=== PATIENT | female | born 1990 | race Hispanic/Latino ===

== ENCOUNTER 2017-03-19 11:56 | Emergency (ER) | payer MEDICAID, SELFPAY ==
[2017-03-19 13:05] LABS: Bilirubin Negative (Negative); Blood, Urine Large (Negative); Glucose, Urine (Dipstick) 500 mg/dL (Negative); Ketone, Urine Negative (Negative); Nitrite Positive (Negative); Protein, Urine (Dipstick) Negative (Neg-Trace); Urobilinogen 0.2 mg/dL (0.2-1.0)
[2017-03-19 13:17] LABS: Bacteria/HPF 4+ HPF (None Seen); Hyaline Casts/LPF 0-3 HYALINE CAST LPF (0-3 Hyaline); RBC/HPF GREATER THAN 50-TNTC HPF (0-3); Squamous Epithelial None Seen HPF (0-3)
[2017-03-19 13:37] LABS: #Eosinphils 0.1 thou/uL (0.0-0.7); #Lymphocytes 2.6 thou/uL (1.20-3.40); #Monocytes 0.4 thou/uL (0.11-0.59); #Neutrophils 4.9 thou/uL (1.40-6.50); %Basophils 0.2 % (0.0-1.0); %Eosinophils 1.6 % (0.0-10.0); %Lymphocytes 32.5 % (21.0-51.0); %Monocytes 4.8 % (0.0-10.0); Hematocrit 38.2 % (36.0-47.0); Mean Platelet Volume 8.8 fL (7.4-10.4); White Blood Cell (WBC) Count 8.1 thou/uL (4.8-10.8)
[2017-03-19] MEDS ORDERED: Nitrofurantoin Monohyd/M-Cryst 100 MG CAP PO SCH (13:45)
[2017-03-19 13:49] LABS: ALT (SGPT) 50 U/L (8-55); AST (SGOT) 56 U/L (5-34); Alkaline Phosphatase 153 U/L (40-150); Anion Gap 9 mmol/L (10-20); BUN (Urea Nitrogen) 9 mg/dL (7.0-18.7); Bilirubin, Total 0.3 mg/dL (0.2-1.2); Calc. Creatinine Clearance 0 mL/min (70-130); Calcium 9.7 mg/dL (7.8-10.44); Carbon Dioxide 28 mmol/L (22-29); Chloride 102 mmol/L (98-107); Estimated GFR-MDRD Greater than 90; Globulin 3.4 g/dL (2.4-3.5); Protein, Total 7.7 g/dL (6.0-8.3)
--- NOTE | 2017-03-19 15:35 | ULT ---
PELVIC ULTRASOUND: 03/19/17 COMPARISON: None. HISTORY: 27-year-old female with vaginal bleeding, positive test. TECHNIQUE: Multiplanar velez scale sonographic imaging of the pelvis obtained with transabdominal and endovaginal imaging. Right ovary is assessed with color flow/spectral analysis. FINDINGS: The left ovary could not be visualized despite transabdominal and endovaginal imaging. There is free fluid within the pelvic cul-de-sac. The uterus measures 9.5 x 3.3 x 4.8 cm with an endometrial stripe of 6-7 mm, within normal limits. No intrauterine gestational sac is noted. Evaluation of the left adnexa is limited on the basis of genevieve l gas. IMPRESSION: No intrauterine gestation seen. The differential diagnosis for these sonographic findings in the setting of positive test i ncludes spontaneous , sonographically occult ectopic , and normal early . C orrelation with quantitative beta HCG at this time and in 48 hours is essential. Followup pelvic ultr asound in 48 hours may be beneficial as well. POS: [facility]
== END 2017-03-19 15:27 | disposition home or self-care (01) ==
LOC: ERS 11:56
DX: O20.0 Threatened abortion (principal); O23.41 Unspecified infection of urinary tract in pregnancy, first trimester; O23.591 Infection of other part of genital tract in pregnancy, first trimester; O10.911 Unspecified pre-existing hypertension complicating pregnancy, first trimester
CPT/HCPCS: 36415; 76856; 80053; 81003; 81015; 84702; 84703; 85025; 86900; 86901; 87480; 87491; 87510; 87591; 87660

== ENCOUNTER 2020-01-14 10:09 | Day surgery (SDC) | payer MEDICAID ==
[2020-01-14 10:47] VITALS: BMI 37.2
[2020-01-14 10:49] VITALS: BP 126/58; TEMP 98.3
[2020-01-14] MEDS ORDERED: hydrALAZINE 20 MG/ML VIAL SLOW IVP PRN (11:30)
--- NOTE | 2020-01-14 11:30 | PDOC.FPROB ---
FMR OB H&P: HPI - History of Present Illness Chief Complaint: decreased movement History of Present Illness: 29 yo at 35.5 wks with a history of insulin dependent pre-gestational diabetes presenting for failed BPP 08/04 x2 at clinic today. Patient has been feeling baby move, she denies any bleeding, LOF, or vaginal discharge. Her diabetes has been generally well-controlled, fasting BGs <100 and postprandial <120. FMR OB H&P: Current - Care : 5 Para: 1031 Gestational age: 35.5 Due date: 02/13/2020 Course/Complications: Class B insulin dependent pre-gestational diabetes, toxoplasmosis of left eye - OB Labs Blood type: O RH: positive Antibody Screen: unknown HIV: negative RPR: negative HepBsAg: negative Rubella: immune Quad screen: negative Urine drug screen: not done Gonorrhea: negative Chlamydia: negative Pap Smear: NILM (06/2019), prior ASCUS with positive HPV A1c: 5.6 (12/23/2019) GBS: unknown Additional labs: 24 hour urine: negative FMR OB H&P: History - Past Medical History PMH: Class B insulin dependent diabetes, toxoplasmosis of L eye - OB History OB History: SABsx3, previous due to diabetes and size of baby - PSYCHIATRIC THERAPIST History PSYCHIATRIC THERAPIST History: NILM (06/2019), prior ASCUS with positive HPV - Surgical History Sx History: None - Social History Social History: Denies tobacco, alcohol, marijuana, or drug use - Family History Family History: Father - diabetes FMR OB H&P: Medications - Current Home Medications: Medication Instructions Recorded Confirmed Type Docusate [Colace] 100 mg PO BID #0 cap 10/24/15 Rx Ferrous Sulfate [Feosol] 325 mg PO BID-WM #0 tab 10/24/15 Rx HYDROcodone Bit/APAP 5/325 [[place]] 1 tab PO Q4H PRN #0 tab 10/24/15 Rx Ibuprofen [Motrin] 800 mg PO Q8HR #0 tab 10/24/15 Rx Vitamin 1 tab PO DAILY #0 tab 10/24/15 01/14/20 Rx Aspirin [Ecotrin] 81 mg PO DAILY 01/14/20 01/14/20 History Allergies/Adverse Reactions: Allergies Allergy/AdvReac Type Severity Reaction Status Date / Time No Known Allergies Allergy Verified 01/14/20 10:41 FMR OB H&P: ROS - Review of Systems Eyes: denies: vision changes Cardiovascular: denies: chest pain Respiratory: denies: shortness of breath Gastrointestinal: denies: abdominal pain Genitourinary (Female): denies: dysuria, vaginal discharge, vaginal bleeding, contractions Neurologic: denies: headache FMR OB H&P: Vital Signs - Maternal Vital signs: Vital Signs - First Documented Temp Pulse Resp BP 98.3 F 80 18 126/58 L 01/14/20 10:38 01/14/20 10:38 01/14/20 10:38 01/14/20 10:38 - Heart Tones Baseline: 130 Variability: moderate Acceleration: present Deceleration: absent Category: category 1 (Reactive NST) [place] contractions every: none FMR OB H&P: Physical Exam - Physical Exam General: NAD, awake, alert and oriented HEENT: normocephalic and atraumatic, EOMI, grossly normal vision, grossly normal hearing, other (red ring around iris of left eye) Neck: FROM Heart: RRR, no murmurs/rubs/gallops, pulses present, no edema General: CTAB, no respiratory distress, no wheezing, no retractions Abdomen: soft, gravid Musculoskeletal: FROM in all four extremities Neurological: sensation to pain,touch and proprioception grossly normal Psychiatric: intact recent and remote memory, good judgement and insight, normal mood and affect FMR OB H&P: A/P Discussion: Date/Time: 01/14/20 1130 29 yo at 35.5 wks with a history of insulin dependent pre-gestational diabetes presenting for failed BPP 08/04 BPP -Unknown what patient lost points for -NST reactive -Feeling baby move, denies bleeding or LOF -BPP 10/04 - points deducted for breathing Pre-gestational insulin dependent diabetes -Has been well controlled during -Fasting BGs <100, postprandial <120 IUP -Missing PNC visit today so will perform GBS swab while here -COVID test 01/29/2020 -rLTCS 02/02/2020 Ocular toxoplasmosis of L eye -localized -received an injection earlier in -currently uses eye drops -denies any problems lately Hx of preE -BPs 120s/80s today -24 hour urine negative in this (105mg protein) -takes daily aspirin SABx3 -MD aware Dispo: Discharged home today. Repeat scheduled on 02/01. Labor precautions given. Continue insulin, aspirin, and vitamin. This H&P was discussed with Dr. Chow and Dr. Kim who agree with the above documentation and plan.
--- NOTE | 2020-01-14 12:55 | ULT ---
US Biophysical Profile History: Decreased movements. Comparison: None Findings: The biophysical profile score is 6/8 scoring 2 for tone, 0 for breathing, 2 for movements and 2 for amniotic fluid. The position is transverse and the placenta is posterior. Heart rate documented at 123 bpm. Amniotic fluid index: 14.3 cm. Impression: Biophysical profile score of 6/8 scoring 0 for breathing.
== END 2020-01-14 13:11 | disposition home or self-care (01) ==
LOC: L&D/OP 10:09
PROVIDERS: ATTEND Obstetrics & Gynecology
DX: O36.8130 Decreased fetal movements, third trimester, not applicable or unspecified (principal); O24.313 Unspecified pre-existing diabetes mellitus in pregnancy, third trimester; E11.9 Type 2 diabetes mellitus without complications; O98.613 Protozoal diseases complicating pregnancy, third trimester; B58.00 Toxoplasma oculopathy, unspecified; O34.219 Maternal care for unspecified type scar from previous cesarean delivery; O32.2XX0 Maternal care for transverse and oblique lie, not applicable or unspecified; Z3A.35 35 weeks gestation of pregnancy; Z79.4 Long term (current) use of insulin; Z79.82 Long term (current) use of aspirin
CPT/HCPCS: 36416; 59025; 76819; 87077; 87081; 99283

== ENCOUNTER 2020-01-28 10:41 | Day surgery (SDC) | payer OTHER, SELFPAY ==
[2020-01-28 11:18] VITALS: BP 128/70; TEMP 98.3
[2020-01-28] MEDS ORDERED: hydrALAZINE 20 MG/ML VIAL SLOW IVP PRN (11:37)
--- NOTE | 2020-01-28 11:42 | PDOC.FPROB ---
FMR OB H&P: HPI - History of Present Illness Chief Complaint: sent from clinic for elevated BPs Indentification: 29yo @ 37.5wks by 8.3wk US History of Present Illness: Patient was at [facility] clinic today getting testing and was found to have BPs in the 140s. Highest was 143/80. Patient's BPP was a 6/8. She denies any NVD, chest pain. She does report some swelling in her hands and feet that started 3 days ago. She endorses mild MIDDLETON that improved with ASA this morning and vision changes this morning that have since resolved. She reports that she was seeing "lines". She has pregestational DM and is on insulin. She did not take her insulin this morning and ate an egg quesadilla. Primary Care Physician: [facility] Carina Chow FMR OB H&P: Current - Care : 4 Para: 1021 Gestational age: 37.5 Due date: 02/13/20 Dating Criteria: 1T US Course/Complications: pregestational DM, class B, hx of preE - OB Labs Blood type: O RH: positive Antibody Screen: negative HIV: negative RPR: negative HepBsAg: negative Rubella: immune Quad screen: negative Gonorrhea: negative Chlamydia: negative Pap Smear: NILM 06/2019 A1c: 9.0 -> 5.6 GBS: positive H&H: 12.6/37.5 Additional labs: Genetics screening normal, TSH 2.390, received Td 11/30/19 - First Trimester Ultrasound First trimester: 8.3 wk US - Anatomy Survey Anatomy survey: normal growth, no abnormalities noted FMR OB H&P: History - Past Medical History PMH: Pregestational diabetes class B, ocular toxoplasmosis, anemia of , GERD, constipation - OB History OB History: 1 CS @ 38 wks 2/2 elevated sugars, macrosomia per pt 2 SAB at 6 and 12 wks - 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 Colpo referal sent. Repap snowed NILM. Colpo 6weeks PP. FMR OB H&P: Medications - Current Home Medications: Medication Instructions Recorded Confirmed Type Ferrous Sulfate [Feosol] 325 mg PO BID-WM #0 tab 10/24/15 01/28/20 Rx Vitamin 1 tab PO DAILY #0 tab 10/24/15 01/28/20 Rx Aspirin [Ecotrin] 81 mg PO DAILY 01/14/20 01/28/20 History Allergies/Adverse Reactions: Allergies Allergy/AdvReac Type Severity Reaction Status Date / Time No Known Allergies Allergy Verified 01/28/20 11:09 FMR OB H&P: ROS - Review of Systems General: denies: fever/chills, weight/appetite/sleep changes, night sweats, fatigue Eyes: reports: vision changes ENT: denies: nasal congestion, rhinorrhea Cardiovascular: reports: edema. denies: chest pain, palpitation Respiratory: reports: shortness of breath Gastrointestinal: denies: abdominal pain, vomiting, diarrhea Genitourinary (Female): denies: incontinence, dysuria FMR OB H&P: Vital Signs - Maternal Vital signs: Vital Signs - First Documented Temp Pulse Resp BP 98.3 F 75 18 128/70 01/28/20 11:09 01/28/20 11:09 01/28/20 11:09 01/28/20 11:09 - Heart Tones Baseline: 120 Variability: moderate Acceleration: present Deceleration: absent [place] contractions every: none FMR OB H&P: Physical Exam - Physical Exam General: NAD, awake, alert and oriented HEENT: normocephalic and atraumatic Deviation from normal: Punctate hemorrhage in L eye sclera near iris Neck: supple, FROM Heart: RRR, normal S1/S2, no murmurs/rubs/gallops General: CTAB, no respiratory distress Abdomen: gravid, non-tender - Pelvic Exam Estimated Weight: 5 lbs FMR OB H&P: A/P Discussion: Date/Time: 01/28/20 1139 29yo @ 37.5wks by 8.3wk US presenting for HTN and 6/10 BPP sIUP - Continuous monitoring, no ctx at this time - repeat BPP in 4 hours - management pending BPP HTN - Hx of PreE, endorses swelling, MIDDLETON, vision changes - CBC, CMP, Uric Acid, Urine protein/creatinine - monitor VS T2DM - Patient did not take insulin this AM - accucheck - NPO at this time in case of C/S Vinny's thyroiditis - MD aware Obesity - MD aware Ocular toxoplasmosis - MD aware - IgG and IgM negative, follows w/ opthalmology This H&P was discussed with Dr. Clayton who agree with the above documentation and plan. Addendum - Attending - Attending Attestation Date/Time: 01/28/20 3326 I personally evaluated the patient and discussed the management with Dr. Metzger I agree with the History, Examination, Assessment and Plan documented above with any addition or exceptions noted below - 29 yo @37.4 weeks with pregestational DM sent from clinic due to elevated BP and BPP 10/04. Denies any ctx, LOF, VB. Mild MIDDLETON this morning resolved with ASA. Home BP log - no reading higher than 140/70. Afebrile VSS. FHTs- Cat 1. [place]- no ctx. Serial BPs <140/80. Labs AST/ALT, plt normal. Urine prot<10. BPP 88; NST reactive. A/P: IUP@ 37.4 weeks - no evidence of pre-eclampsia or PHI. Repeat BPP 12/04. D/C home with labor precautions. Repeat C/S scheduled for Saturday.
[2020-01-28 12:28] LABS: #Eosinphils 0.1 thou/uL (0.0-0.7); #Lymphocytes 2.1 thou/uL (1.20-3.40); #Monocytes 0.5 thou/uL (0.11-0.59); #Neutrophils 7.6 thou/uL (1.40-6.50); %Basophils 0.4 % (0.0-1.0); %Eosinophils 0.5 % (0.0-10.0); %Lymphocytes 20.2 % (21.0-51.0); %Monocytes 4.6 % (0.0-10.0); %Neutrophils 74.2 % (42.0-75.0); Hemoglobin 12.5 g/dL (12.0-16.0); Mean Corpuscular Volume 88.1 fL (78.0-98.0); Mean Platelet Volume 9.6 fL (7.4-10.4); Platelet Count 155 thou/uL (130-400); RBC Distribution Width 12.9 % (11.5-14.5); Red Blood Cell (RBC) Count 4.18 mill/uL (4.20-5.40); White Blood Cell (WBC) Count 10.2 thou/uL (4.8-10.8)
[2020-01-28 12:36] LABS: Creatinine, Urine 67.97 mg/dL (47-110); Protein, Urine Random Quant Less than 10 mg/dL (1-14)
[2020-01-28 12:50] LABS: ALT (SGPT) 11 U/L (8-55); AST (SGOT) 9 U/L (5-34); Albumin 3.4 g/dL (3.5-5.0); Alkaline Phosphatase 164 U/L (40-110); Anion Gap 14 mmol/L (10-20); BUN (Urea Nitrogen) 8 mg/dL (7.0-18.7); Bilirubin, Total 0.3 mg/dL (0.2-1.2); Calc. Creatinine Clearance 0 mL/min (70-130); Calcium 8.5 mg/dL (7.8-10.44); Carbon Dioxide 19 mmol/L (22-29); Chloride 107 mmol/L (98-107); Estimated GFR-MDRD Greater than 90; Globulin 3.3 g/dL (2.4-3.5); Glucose 84 mg/dL (70-105); Potassium 3.8 mmol/L (3.5-5.1); Protein, Total 6.7 g/dL (6.0-8.3); Sodium 136 mmol/L (136-145); Uric Acid 3.7 mg/dL (2.6-6.0)
--- NOTE | 2020-01-28 17:13 | ULT ---
ULTRASOUND BIOPHYSICAL PROFILE: DATE: 01/28/2020 HISTORY: 29-year-old female in third trimester of . FINDINGS: breathin tone: 2 movement: 2 Amniotic fluid volume: 2 Although largest pocket of amniotic fluid is 3.5 cm, the LESTER is only 5 cm. lie: Vertex. Placenta: Fundal. No placenta previa. IMPRESSION: 1. Normal biophysical profile score of 8/8, excluding the non-stress test. 2. Borderline oligohydramnios. jn [] POS: [facility]
[2020-01-29] MEDS ORDERED: FLU VACC QS2020-21(6MOS UP)/PF 60 MCG/0.5 ML SYRINGE IM ONE (09:00)
== END 2020-01-28 15:15 | disposition home or self-care (01) ==
LOC: L&D/OP 10:41
PROVIDERS: ATTEND Family Medicine
DX: O16.3 Unspecified maternal hypertension, third trimester (principal); O24.414 Gestational diabetes mellitus in pregnancy, insulin controlled; O99.283 Endocrine, nutritional and metabolic diseases complicating pregnancy, third trimester; E06.3 Autoimmune thyroiditis; O99.213 Obesity complicating pregnancy, third trimester; E66.9 Obesity, unspecified; O98.613 Protozoal diseases complicating pregnancy, third trimester; B58.00 Toxoplasma oculopathy, unspecified; O99.013 Anemia complicating pregnancy, third trimester; D64.9 Anemia, unspecified; O09.293 Supervision of pregnancy with other poor reproductive or obstetric history, third trimester; O34.219 Maternal care for unspecified type scar from previous cesarean delivery; Z3A.37 37 weeks gestation of pregnancy; Z79.82 Long term (current) use of aspirin
CPT/HCPCS: 36415; 36416; 76819; 80053; 82570; 84156; 84550; 85025

== ENCOUNTER 2020-01-29 08:38 | Outpatient (CLI) | payer OTHER ==
[2020-01-29 19:47] LABS: SARS-CoV-2 MS2 Positive; SARS-CoV-2 N Gene Negative; SARS-CoV-2 S Gene Negative; SARS-CoV-2 by NAA Not Detected (NotDetected); SARS-CoV-2 orf1ab Negative
== END 2020-01-29 08:39 | disposition home or self-care (01) ==
LOC: LABBT 08:38
PROVIDERS: ATTEND Family Medicine
DX: Z20.828 Contact with and (suspected) exposure to other viral communicable diseases (principal)
CPT/HCPCS: 87635; U0003

== ENCOUNTER 2020-02-02 06:38 | Inpatient (IN) | payer OTHER, SELFPAY ==
[2020-02-02] MEDS ORDERED: hydrALAZINE 20 MG/ML VIAL SLOW IVP PRN ×2 (06:42)
[2020-02-02] MEDS ORDERED: Ondansetron PF 4 MG/2 ML Vial IVP PRN ×3 (06:42→07:38)
[2020-02-02] MEDS ORDERED: Acetaminophen 500 MG TAB PO PRN (06:42)
[2020-02-02] MEDS ORDERED: Promethazine HCl 25 MG/ML VIAL IM PRN ×3 (06:42→07:38)
[2020-02-02] MEDS ORDERED: CEFAZOLIN 2 GM in Premix Bag 1 BAG IVPB SCH ×2 (06:45→07:15)
[2020-02-02] MEDS ORDERED: Lactated Ringer's 1,000 ML IV SCH (06:45)
[2020-02-02] MEDS ORDERED: Bicitra 30 ML UDCUP PO SCH ×2 (06:45→07:15)
--- NOTE | 2020-02-02 06:51 | PDOC.FPROB ---
FMR OB H&P: HPI - History of Present Illness Chief Complaint: scheduled RLTCS Indentification: 29 yo at 38.3 by 1T sono History of Present Illness: Patient presents for repeat scheduled . Denies VB, VD, LOF, and contractions. Some cramping abdominal pain, intermittently, does not know if they are contractions. Primary Care Physician: LAQUITA Chow - Care : 4 Para: 1021 Gestational age: 38.3 Due date: 02/13/20 Dating Criteria: 1T US Course/Complications: pregestational DM, class B ocular toxoplasmosis anemia of - OB Labs Blood type: O RH: positive Antibody Screen: negative HIV: negative RPR: negative HepBsAg: negative Rubella: immune Quad screen: negative Gonorrhea: negative Chlamydia: negative Pap Smear: NILM 06/2019 A1c: 9.0 -> 5.6 GBS: positive H&H: 12.6/37.5 Additional labs: Genetics screening normal, TSH 2.390, received Td 11/30/19 - First Trimester Ultrasound First trimester: 8.3 wk US - Anatomy Survey Anatomy survey: normal growth, no abnormalities noted FMR OB H&P: History - Past Medical History PMH: Diabetes, GERD - OB History OB History: 1 CS @ 38 wks 2/2 elevated sugars, macrosomia per pt, Pre-E 2 SAB at 6 and 12 wks - 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 Colpo referal sent. Repap snowed NILM. Colpo 6weeks PP. FMR OB H&P: Medications - Current Home Medications: Medication Instructions Recorded Confirmed Type Ferrous Sulfate [Feosol] 325 mg PO BID-WM #0 tab 10/24/15 02/02/20 Rx Vitamin 1 tab PO DAILY #0 tab 10/24/15 02/02/20 Rx Aspirin [Ecotrin] 81 mg PO DAILY 01/14/20 02/02/20 History Insulin NPH Human Isophane 46 unit SQ BID 02/02/20 02/02/20 History [NovoLIN N] Insulin Regular, Human [Novolin R] 30 units IJ BID 02/02/20 02/02/20 History prednisoLONE [Prednisolone] 1 drop EA EYE DAILY 02/02/20 02/02/20 History Allergies/Adverse Reactions: Allergies Allergy/AdvReac Type Severity Reaction Status Date / Time No Known Allergies Allergy Verified 01/28/20 11:09 FMR OB H&P: ROS - Review of Systems General: denies: fever/chills, fatigue Eyes: denies: vision changes ENT: denies: nasal congestion, sore throat Cardiovascular: denies: chest pain, edema Respiratory: denies: cough, shortness of breath Gastrointestinal: reports: cramping. denies: nausea, vomiting Genitourinary (Female): denies: dysuria, vaginal discharge, vaginal bleeding, contractions Musculoskeletal: denies: pain Neurologic: denies: headache Integumentary: denies: itching, rash Hematologic/Lymphatic: denies: prolonged or excessive bleeding Psychological: denies: depression, anxiety FMR OB H&P: Vital Signs - Maternal Vital signs: BP 138/78 HR 78 R 12 - Heart Tones Baseline: 130 (reactive) Variability: moderate Acceleration: present Deceleration: absent [place] contractions every: none FMR OB H&P: Physical Exam - Physical Exam General: NAD, awake, alert and oriented HEENT: normocephalic and atraumatic, MMM, no scleral icterus, grossly normal vision, grossly normal hearing Deviation from normal: small conjunctival hemorrhage from injection Neck: supple, FROM, trachea midline Heart: RRR, normal S1/S2, no murmurs/rubs/gallops General: CTAB, no respiratory distress Abdomen: soft, gravid, non-tender Musculoskeletal: normal gait and station, pulses present, FROM in all four extremities Neurological: no focal deficit Skin: no rash Lymphatic: no unusual bruising or bleeding Psychiatric: intact recent and remote memory, normal mood and affect - Pelvic Exam Membranes: intact Presentation: cephalic by sono Estimated Weight: 9 lbs FMR OB H&P: A/P Disposition: admit to obstetrics unit for RLTCS this AM. Discussion: Date/Time: 02/02/20 0649 29 yo at 38.3 presents for due to: Pregestational diabetes, class B, on insulin - preop Covid NEG - bedside sono cephalic presentation, posterior placenta Hx of prior , pre-e Hx of ocular toxoplasmosis This H&P was discussed with Dr. Roa, who agrees with the above documentation and plan. Signature: Jamarcus Chow, PGY2 Addendum - Attending - Attending Attestation Date/Time: 02/02/20 4738 I personally evaluated the patient and discussed the management with Dr. Chow. I agree with the History, Examination, Assessment and Plan documented above with any addition or exceptions noted below. Discussed risks of with patient and she consents and desires to proceed.
[2020-02-02] MEDS ORDERED: Ondansetron PF 4 MG/2 ML Vial ONE ×2 (06:57→10:54)
[2020-02-02] MEDS ORDERED: Ketorolac Tromethamine 30 MG/ML VIAL ONE (06:57)
[2020-02-02] MEDS ORDERED: PHENYLEPHRINE-NS 100 MCG/ML 10 ML SYRINGE ONE (06:57)
[2020-02-02] MEDS ORDERED: Oxytocin 10 UNITS/ML VIAL ONE ×2 (06:57→09:23)
[2020-02-02] MEDS ORDERED: Lidocaine 1% PF 5 ML VIAL ONE (07:16)
[2020-02-02 07:33] VITALS: BMI 38.2
[2020-02-02 07:36] LABS: Hemoglobin 12.4 g/dL (12.0-16.0); Mean Corpuscular HGB CONC 34.5 g/dL (32.0-36.0); Mean Corpuscular Hemoglobin 29.9 pg (27.0-31.0); Mean Corpuscular Volume 86.5 fL (78.0-98.0); Mean Platelet Volume 10.2 fL (7.4-10.4); Platelet Count 162 thou/uL (130-400); Red Blood Cell (RBC) Count 4.16 mill/uL (4.20-5.40); White Blood Cell (WBC) Count 9.1 thou/uL (4.8-10.8)
[2020-02-02] MEDS ORDERED: Ondansetron HCl/PF 4 MG/2 ML Vial IVP PRN (07:38)
[2020-02-02] MEDS ORDERED: Ketorolac Tromethamine 30 MG/ML VIAL IVP PRN (07:38)
[2020-02-02] MEDS ORDERED: diphenhydrAMINE 50 MG/ML VIAL IVP PRN (07:38)
[2020-02-02] MEDS ORDERED: Meperidine HCl/PF 25 MG/ML VIAL SLOW IVP PRN (07:38)
[2020-02-02] MEDS ORDERED: HYDROmorphone 2 MG/ML VIAL SLOW IVP PRN (07:38)
[2020-02-02] MEDS ORDERED: Naloxone HCl 0.4 mg/ml Vial IV PRN (07:38)
[2020-02-02] MEDS ORDERED: Naloxone HCl 0.4 mg/ml Vial IVP PRN ×2 (07:38)
[2020-02-02] MEDS ORDERED: L&D-Morphine 4 MG/ML VIAL SLOW IVP PRN (07:38)
[2020-02-02] MEDS ORDERED: Promethazine HCl 25 MG SUPP PR PRN (07:38)
[2020-02-02] MEDS ORDERED: Dextrose 50% Abboject 50 ML SYRINGE ONE (07:44)
[2020-02-02] MEDS ORDERED: Ketorolac Tromethamine 30 MG/ML VIAL IVP SCH (07:45)
[2020-02-02] MEDS ORDERED: Communication Order-Pharmacy FS SCH (07:45)
[2020-02-02] MEDS ORDERED: FLU VACC QS2020-21(6MOS UP)/PF 60 MCG/0.5 ML SYRINGE IM ONE (08:15)
[2020-02-02] MEDS ORDERED: ePHEDrine 50 MG/ML VIAL ONE ×2 (08:17)
[2020-02-02 08:18] LABS: Syphilis Antibody Nonreactive (Nonreactive); Syphilis Antibody Index 0.03 S/CO (<1.00 Non-Reactive)
[2020-02-02 08:19] LABS: HBSAg Index 0.12 S/CO (0-0.99); Hep B Surf Ag Non-Reactive S/CO (NonReactive)
[2020-02-02] MEDS ORDERED: Morphine 4 MG/ML VIAL ONE (09:20)
[2020-02-02] MEDS ORDERED: NS / Oxytocin 40 units/1000ml 0 ML ONE (09:27)
[2020-02-02] MEDS ORDERED: Lanolin Ointment 7 GM TUBE TOP PRN (11:20)
[2020-02-02] MEDS ORDERED: Misoprostol 200 MCG TAB PR PRN (11:20)
[2020-02-02] MEDS ORDERED: Methylergonovine 0.2 MG TAB PO PRN (11:20)
[2020-02-02] MEDS ORDERED: Bisacodyl 10 MG SUPP PR PRN (11:20)
--- NOTE | 2020-02-02 13:04 | PDOC.BPN ---
- Brief Progress Note Seen 4hrs post op S: pt feeling generally well though she is having some nausea and vomiting clears. Otherwise reports pain is controlled and she has not had bleeding. No CP or SOB, no MIDDLETON. O: vitals reviewed and wnl Abd is appropriately tender with fundus a few cm below umbilicus, no dionte bleeding through bandage or vagina heart RRR lungs CTAB BG reviewed and consistently in 80s and 90s every hour A/P: Pt has had dose of zofran 2 hours ago but still nauseous. Instructed nurse she may administer the ordered promethazine. space blood sugar checks to q4hrs. otherwise routine PP care.
[2020-02-02] MEDS: Lactated Ringer's 1,000 ML IV SCH ×4 (16:26→19:21)
--- NOTE | 2020-02-02 18:56 | OP ---
DATE OF PROCEDURE: 02/02/2020 RESIDENT SURGEON: aPrul Chow MD, PGY2 READING TEACHER SURGEON: Jack Troy MD, PGY2 ATTENDING: Deyvi Roa MD PROCEDURE PERFORMED: Repeat low-transverse section with vacuum assisted extraction PREOPERATIVE DIAGNOSES: 1. Term intrauterine . 2. Pregestational diabetes, class B. 3. History of preeclampsia in prior . 4. 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 POSTOPERATIVE DIAGNOSES: 1. Term intrauterine , delivered. 2. Pregestational diabetes, class B. 3. History of preeclampsia in prior . 4. 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 COMPLICATIONS: None. QUANTITATIVE BLOOD LOSS: 550 mL. SPECIMENS: Cord blood obtained for blood type. FINDINGS: Placenta intact with 3-vessel cord noted, discarded. Viable male with Apgars of 8 and 9 at 1 and 5 minutes of life respectively. DRAINS: Obrien to gravity draining clear urine. INDICATIONS FOR PROCEDURE: This 29-year-old G4, P1-0-2-1, at 38.3 weeks of gestation, presents to labor and delivery for a repeat low-transverse scheduled , medically indicated due to pregestational diabetes. PROCEDURE IN DETAIL: After risks, benefits, and alternatives were explained, the patient gave her informed consent. Preoperative antibiotics included cefazolin 2 g IV. The patient was taken to the operating room, where spinal anesthesia was initiated. The patient was placed in a supine position with left tilt. She was prepped and draped in the usual sterile fashion. After a time-out was performed, a Pfannenstiel was made over the previous scar with a scalpel and carried down to the level of the fascia, which was sharply nicked. The fascia was extended bilaterally with Cedillo scissors. The superior and inferior edges of the fascia were elevated with Devin clamps and were bluntly and sharply dissected free. The rectus muscles were divided digitally and retracted manually. The peritoneum was entered superiorly bluntly and retracted manually. The bladder was noted to be near to the inferior edge of the fascia and so the field was opened laterally to create more room. There were no noted intraabdominal adhesions. The Satinder O retractor was placed inside the abdomen. A low-transverse uterine incision was made with a scalpel. The uterus was entered bluntly. An Allis clamp was used to break the amniotic sac. Clear fluid was seen. Two attempts were made to bring the infant's head to the uterine incision. A vacuum was then applied to the 's head, and the 's head was easily delivered with gentle traction. Vacuum was removed. The anterior shoulder and remainder of the infant's body were then delivered. The infant was dried; cord was clamped and cut. The infant was taken to the warmer. Cord blood was obtained. The hysterotomy was clamped with ring forceps. The placenta was delivered easily with cord traction and fundal massage. The endometrium was curetted 3 times with a dry lap, and no remnants of amniotic membranes were observed. The hysterotomy was closed in a running locking fashion with 1 Monocryl. After this, hemostasis was achieved. A small 2 cm diameter hematoma was noted at the left corner of the hysterotomy. This was checked multiple times over a 10-minute period and noted to be hemostatic. The uterus was externalized and there was no bleeding posteriorly. The edges of the fascia and rectus muscle bleeders were cauterized. Uterus was internalized. Due to bladder location, the bladder was filled with approximately 200 mL of sterile formula. No extravasation of formula was noted. The hysterotomy was again noted to be hemostatic x5. The fascia was then closed in a running nonlocking fashion with 1 PDS with the exception of locking the first stitch at the corners. Subcutaneous space was closed with 2-0 plain gut in an interrupted fashion. The skin was approximated using mechelle. A pressure dressing was placed. All counts were correct. The patient tolerated the procedure well and went to for routine care. Attending addendum: I was present and scrubbed for the entire procedure. Job ID: [id number] [facility]
[2020-02-02] MEDS: Ferrous Sulfate 325 MG TAB PO SCH (19:21)
[2020-02-03] MEDS: Lactated Ringer's 1,000 ML IV SCH ×2 (00:53→16:03)
[2020-02-03 06:00] LABS: Hemoglobin 9.5 g/dL (12.0-16.0); Mean Corpuscular HGB CONC 34.9 g/dL (32.0-36.0); Mean Corpuscular Hemoglobin 30.5 pg (27.0-31.0); Mean Corpuscular Volume 87.4 fL (78.0-98.0); Mean Platelet Volume 9.4 fL (7.4-10.4); Platelet Count 114 thou/uL (130-400); RBC Distribution Width 12.9 % (11.5-14.5); Red Blood Cell (RBC) Count 3.11 mill/uL (4.20-5.40); White Blood Cell (WBC) Count 8.7 thou/uL (4.8-10.8)
--- NOTE | 2020-02-03 06:12 | PDOC.PP ---
Post Progress Note Post Day #: 1 Subjective: Feeling well. Pain has been tolerable w/ toradol and ibuprofen. Nausea and vomiting yesterday, this morning feels better. Has not had solid food. Obrien removed this AM. PO intake tolerated: no Flatus: yes Ambulation: no Vital Signs (12 hours) Temp Pulse Resp BP Pulse Ox 02/03/20 04:57 98.4 F 95 16 99/51 L 100 02/03/20 00:58 97.7 F 97 16 101/57 L 99 02/02/20 19:27 98.4 F 88 18 117/56 L 99 Weight Weight 101.605 kg - Physical Examination General: NAD Cardiovascular: no m/r/g, RRR Respiratory: clear to auscultation bilaterally, non-labored breathing Abdominal: + bowel sounds, no distention, appropriately TTP Fundus firm & at: 1 fingerwidth below umbilicus Skin: CS incision dry & intact (very minimal drainage from staple line, bandage removed), no rash Neurological: no gross focal deficits Psychiatric: A&Ox3, normal affect Result Diagrams: 02/03/20 05:38 Additional Labs: Post Labs Hep Bs Antigen Non-Reactive S/CO (NonReactive) 02/02/20 07:05 Blood Type O POSITIVE 02/02/20 07:06 - Assessment/Plan 29 yo G4 now P2012 delivered at 38.3 wga: POD #1 s/p RLTCS w/ vacuum assisted extraction - postop Hgb 9.5 from 12.4, feels well - routine care - assess food intake today - encourage ambulation - pain control w/ Encinal & ibuprofen. Pregestational DM, class B - sugars q4h 102, 154, 124 - mild sliding scale insulin - plan to restart metformin - if eating well, check glucose fasting, preprandial, and postprandial. Dispo: inpatient . Addendum - Attending - Attending Attestation Date/Time: 02/03/20 1128 I personally evaluated the patient and discussed the management with Dr. Chow. I agree with the History, Examination, Assessment and Plan documented above with any addition or exceptions noted below. Inc c/d/i s e/e. Routine pp care. SSI as poor PO intake yesterday. Likely restart longacting today.
[2020-02-03] MEDS ORDERED: Dextrose 50% Abboject 50 ML SYRINGE SLOW IVP PRN (06:15)
[2020-02-03] MEDS ORDERED: Dextrose 5% in Water 1,000 ML IV PRN (06:15)
[2020-02-03] MEDS ORDERED: HumaLOG 300 UNITS/3 ML VIAL SC PRN (06:15)
[2020-02-03] MEDS ORDERED: FLU VACC QS2020-21(6MOS UP)/PF 60 MCG/0.5 ML SYRINGE IM ONE (09:00)
[2020-02-03] MEDS ORDERED: Adacel (T-DAP) 0.5 ML SYRINGE IM ONE (09:00)
[2020-02-03] MEDS: HYDROcodone/Acetaminophen 5/325 mg Tablet PO PRN ×2 (09:21→20:03)
[2020-02-03] MEDS: Docusate Calcium (SURFAK) 240 MG CAP PO PRN ×2 (09:30→22:07)
[2020-02-03] MEDS: Ferrous Sulfate 325 MG TAB PO SCH ×2 (09:30→22:07)
[2020-02-03] MEDS: Ibuprofen 800 MG TAB PO SCH ×2 (11:30→22:07)
[2020-02-03] MEDS: Simethicone Chewable 80 MG TAB PO PRN ×2 (19:14→20:04)
[2020-02-04] MEDS: Ibuprofen 800 MG TAB PO SCH ×3 (06:16→21:23)
--- NOTE | 2020-02-04 07:16 | PDOC.PP ---
Post Progress Note Post Day #: 2 Subjective: Feeling well this AM. Ate and walked. Has some pain w/ walking. Otherwise no concerns. PO intake tolerated: yes Flatus: yes Ambulation: yes Vital Signs (12 hours) Temp Pulse Resp BP Pulse Ox 02/03/20 19:26 98.3 F 93 20 111/56 L 99 Weight Weight 101.605 kg - Physical Examination General: NAD Cardiovascular: no m/r/g, RRR Respiratory: clear to auscultation bilaterally, non-labored breathing Abdominal: + bowel sounds, lochia (downtrending), no distention, appropriately TTP Fundus firm & at: 1 fingerwidth below umbilicus Skin: CS incision dry & intact, no rash (no drainage) Neurological: no gross focal deficits Psychiatric: A&Ox3, normal affect Result Diagrams: 02/03/20 05:38 Additional Labs: Post Labs Hep Bs Antigen Non-Reactive S/CO (NonReactive) 02/02/20 07:05 Blood Type O POSITIVE 02/02/20 07:06 - Assessment/Plan 29 yo G4 now P2012 delivered at 38.3 wga: POD #2 s/p RLTCS w/ vacuum assisted extraction - routine care - meeting milestones. - incision w/ mechelle, consider removing just prior to discharge if d/c today or tomorrow. - pain control w/ [place] (took 2 tabs of 5 mg yesterday) & ibuprofen. Pregestational DM, class B - required 2 units of humalog yesterday. - continues mild sliding scale insulin - plan to restart metformin outpatient - restart long acting today since taking food regularly. dose last at 46 Novolin N, 30 Novolin R BID. I will keep this ratio and cut the dose to 1/3 of last dose in order to avoid hypoglycemia. Typically patients r equire half of the insulin compared to levels. Novolin N 15 units BID and Novolin R 10 units BID ordered for today. Dispo: inpatient . Consider d/c today or tomorrow. F/u w/ [facility] at 1 week to evaluate incision and follow up on sugar checks. Addendum - Attending - Attending Attestation Date/Time: 02/04/20 1314 I personally evaluated the patient and discussed the management with the team. I agree with the History, Examination, Assessment and Plan documented above with any addition or exceptions noted below. Likely d/c tomorrow. [place] reviewed and no prior rx seen.
[2020-02-04] MEDS: Lactated Ringer's 1,000 ML IV SCH ×2 (07:48→07:49)
[2020-02-04] MEDS: NPH, Human Insulin Isophane 300 UNIT/3 ML VIAL SQ SCH ×2 (09:44→21:30)
[2020-02-04] MEDS: Insulin Regular 300 UNITS/3 ML VIAL SC SCH ×2 (09:44→21:27)
[2020-02-04] MEDS: Ferrous Sulfate 325 MG TAB PO SCH ×2 (09:45→21:23)
[2020-02-05] MEDS: Lactated Ringer's 1,000 ML IV SCH ×2 (03:35→08:58)
[2020-02-05] MEDS: Ibuprofen 800 MG TAB PO SCH (05:58)
--- NOTE | 2020-02-05 06:50 | PDOC.PP ---
Post Progress Note Post Day #: 3 Subjective: Feeling well. No concerns. Has some abdominal pain. Bruise around umbilicus where she injected insulin. PO intake tolerated: yes Flatus: yes Ambulation: yes Vital Signs (12 hours) Temp Pulse Resp BP 02/04/20 21:15 97.9 F 88 16 119/57 L Weight Weight 101.605 kg - Physical Examination General: NAD Cardiovascular: no m/r/g, RRR Respiratory: clear to auscultation bilaterally, non-labored breathing Abdominal: + bowel sounds, no distention, appropriately TTP Fundus firm & at: 1 fingerwidth below umbilicus Skin: CS incision dry & intact, no rash Psychiatric: A&Ox3, normal affect Result Diagrams: 02/03/20 05:38 Additional Labs: Post Labs Hep Bs Antigen Non-Reactive S/CO (NonReactive) 02/02/20 07:05 Blood Type O POSITIVE 02/02/20 07:06 - Assessment/Plan 29 yo G4 now P2012 delivered at 38.3 wga: POD #3 s/p RLTCS w/ vacuum assisted extraction - routine care - meeting milestones. - incision w/ mechelle, remove in clinic next week - pain control w/ ibuprofen. Did not require any [place] yesterday Pregestational DM, class B - continue insulin N at 15 bid and insulin R at 10 bid - continued to check sugars Dispo: discharge today, f/u at [facility] in 1 week. Addendum - Attending - Attending Attestation Date/Time: 02/05/20 1236 I personally evaluated the patient and discussed the management with Dr. Chow. I agree with the History, Examination, Assessment and Plan documented above with any addition or exceptions noted below. No hypoglycemia. Additional insulin teaching provided. Follow up Saturday for staple removal.
[2020-02-05 08:27] VITALS: BP 138/67; TEMP 98.6
[2020-02-05] MEDS: Insulin Regular 300 UNITS/3 ML VIAL SC SCH (09:24)
[2020-02-05] MEDS: Ferrous Sulfate 325 MG TAB PO SCH (09:24)
[2020-02-05] MEDS: NPH, Human Insulin Isophane 300 UNIT/3 ML VIAL SQ SCH (09:25)
== END 2020-02-05 12:03 | disposition home or self-care (01) | DRG 788 ==
LOC: L&D 06:38 → 3SW 12:22
PROVIDERS: ADMIT Family Medicine; ATTEND Family Medicine
PROC: 10D00Z1 Extraction of Products of Conception, Low, Open Approach (ICD-10-PCS; principal; 2020-02-02)
PROC: 3E02340 Introduction of Influenza Vaccine into Muscle, Percutaneous Approach (ICD-10-PCS; 2020-02-02)
DX: O34.211 Maternal care for low transverse scar from previous cesarean delivery (principal); O24.424 Gestational diabetes mellitus in childbirth, insulin controlled; O99.02 Anemia complicating childbirth; D64.9 Anemia, unspecified; O99.824 Streptococcus B carrier state complicating childbirth; Z20.828 Contact with and (suspected) exposure to other viral communicable diseases; Z3A.38 38 weeks gestation of pregnancy; Z37.0 Single live birth; Z23 Encounter for immunization
CPT/HCPCS: 36415; 36416; 51702; 85027; 86780; 86850; 86900; 86901; 87340; J1815; J1885; J2270; J2405; J2550; J3490

== ENCOUNTER 2020-03-18 16:42 | Emergency (ER) | payer MEDICAID ==
[2020-03-18 17:13] LABS: #Basophils 0.1 thou/uL (0.0-0.2); #Eosinphils 0.1 thou/uL (0.0-0.7); #Lymphocytes 2.3 thou/uL (1.20-3.40); #Monocytes 0.3 thou/uL (0.11-0.59); #Neutrophils 5.8 thou/uL (1.40-6.50); %Basophils 0.7 % (0.0-1.0); %Eosinophils 1.3 % (0.0-10.0); %Lymphocytes 26.7 % (21.0-51.0); %Neutrophils 67.4 % (42.0-75.0); Hemoglobin 11.6 g/dL (12.0-16.0); Mean Corpuscular HGB CONC 35.1 g/dL (32.0-36.0); Mean Corpuscular Volume 82.6 fL (78.0-98.0); Mean Platelet Volume 9.4 fL (7.4-10.4); Platelet Count 227 thou/uL (130-400); RBC Distribution Width 13.2 % (11.5-14.5); Red Blood Cell (RBC) Count 3.98 mill/uL (4.20-5.40); White Blood Cell (WBC) Count 8.5 thou/uL (4.8-10.8)
[2020-03-18 17:18] LABS: Bacteria/HPF None Seen HPF (None Seen); Bilirubin Negative (Negative); Blood, Urine 3+ (Negative); Clarity Clear (Clear); Glucose, Urine (Dipstick) Normal (Negative); Ketone, Urine Negative (Negative); Leukocyte Negative Leu/uL (Negative); Nitrite Negative (Negative); Protein, Urine (Dipstick) Negative (Neg-Trace); Specific Gravity, Urine 1.006 (1.002-1.036); Squamous Epithelial 0-3 HPF (0-3); Urobilinogen Normal mg/dL (Less than 2); WBC/HPF 0-3 HPF (0-3); pH, Urine 5.5 (5.0-9.0)
[2020-03-18 17:31] LABS: ALT (SGPT) 22 U/L (8-55); AST (SGOT) 19 U/L (5-34); Albumin 4.2 g/dL (3.5-5.0); Alkaline Phosphatase 117 U/L (40-110); Anion Gap 13 mmol/L (10-20); BUN (Urea Nitrogen) 11 mg/dL (7.0-18.7); Bilirubin, Total 0.2 mg/dL (0.2-1.2); Calc. Creatinine Clearance 0 mL/min (70-130); Calcium 9.2 mg/dL (7.8-10.44); Carbon Dioxide 21 mmol/L (22-29); Chloride 106 mmol/L (98-107); Estimated GFR-MDRD Greater than 90; Globulin 3.5 g/dL (2.4-3.5); Glucose 155 mg/dL (70-105); Protein, Total 7.7 g/dL (6.0-8.3); Sodium 136 mmol/L (136-145)
== END 2020-03-18 20:25 | disposition left against medical advice (07) ==
LOC: ERS 16:42
DX: Z53.21 Procedure and treatment not carried out due to patient leaving prior to being seen by health care provider (principal)
CPT/HCPCS: 36415; 80053; 81003; 81015; 85025